=== PATIENT | female | born 1945 | race Caucasian/White ===

== ENCOUNTER 2022-10-03 12:15 | Emergency (ER) | payer MEDICARE ==
[2022-10-03] MEDS ORDERED: Fentanyl 100 MCG/2 ML VIAL ONE (13:33)
[2022-10-03] MEDS ORDERED: Ondansetron PF 4 MG/2 ML Vial ONE (13:33)
[2022-10-03] MEDS ORDERED: Ketorolac Tromethamine 30 MG/ML VIAL ONE (14:46)
== END 2022-10-03 15:07 | disposition home or self-care (01) ==
LOC: ERS 12:15
DX: S70.02XA Contusion of left hip, initial encounter (principal); W19.XXXA Unspecified fall, initial encounter
CPT/HCPCS: 70450; 72170; 96374; 96375; J1885; J2405; J3010